=== PATIENT | male | born 1995 | race African-American/Black ===

== ENCOUNTER 2018-04-22 06:44 | Emergency (ER) | payer MEDICAID ==
[~2018-04-22] VITALS: Ht 170.2 cm; Wt 91.0 kg
[2018-04-22] MEDS ORDERED: IBUPROFEN 800MG TABLET PO ONE (08:00)
[2018-04-22 08:20] VITALS: BP 112/54
== END 2018-04-22 08:26 | disposition home or self-care (01) ==
LOC: ER 06:44
DX: K04.7 Periapical abscess without sinus (principal)
CPT/HCPCS: 99283